=== PATIENT | female | born 1955 | race Asian ===

== ENCOUNTER 2020-07-06 17:09 | Emergency (ER) | payer OTHER ==
[2020-07-06 17:16] VITALS: BMI 30.4
[2020-07-06] MEDS ORDERED: methylPREDNISolone NA SUCC 125 MG/2 ML VIAL IVPB ONE (17:58)
[2020-07-06] MEDS ORDERED: FAMOTIDINE 20 MG TABLET PO ONE (17:58)
[2020-07-06] MEDS ORDERED: FAMOTIDINE 20 MG TABLET ONE (18:09)
[2020-07-06] MEDS ORDERED: methylPREDNISolone NA SUCC 125 MG/2 ML VIAL ONE (18:09)
[2020-07-06 19:28] LABS: BASO % 0.9 % (0-2.0); EOS % 2.8 % (0-4.5); HEMATOCRIT 40.8 % (32.4-45.2); HEMOGLOBIN 13.9 GM/dL (10.7-15.3); LYMPH % 19.9 % (8-40); MCH 30.1 pg (25.7-33.7); MEAN CELL VOLUME 88.4 fl (80-96); MEAN PLT VOLUME 10.2 fl (7.5-11.1); MONO % 6.8 % (3.8-10.2); NEUT % 69.6 % (42.8-82.8); PLATELET COUNT 254 K/MM3 (134-434); RBC 4.61 M/mm3 (3.60-5.2); RDW 13.1 % (11.6-15.6); WHITE BLOOD COUNT 13.8 K/mm3 (4.0-10.0)
[2020-07-06 19:34] LABS: INR 1.05 (0.83-1.09); PROTHROMBIN TIME (PATIENT) 12.9 SEC (9.7-13.0)
[2020-07-06 19:41] LABS: POTASSIUM 5.1 mmol/L (3.5-5.1)
[2020-07-06 19:44] LABS: ALBUMIN 4.2 g/dl (3.4-5.0); BLOOD UREA NITROGEN 13.5 mg/dL (7-18); CALCIUM 9.8 mg/dL (8.5-10.1)
[2020-07-06 19:47] LABS: CREATININE 0.8 mg/dL (0.55-1.3)
[2020-07-06 19:48] LABS: BILIRUBIN,TOTAL 0.5 mg/dL (0.2-1); TOT PROT 8.4 g/dl (6.4-8.2)
[2020-07-06 19:53] LABS: URINE APPEARANCE CLEAR; URINE BILIRUBIN NEGATIVE (NEGATIVE); URINE COLOR YELLOW; URINE GLUCOSE (UA) NEGATIVE (NEGATIVE); URINE KETONE NEGATIVE (NEGATIVE); URINE LEUK ESTERASE NEGATIVE (NEGATIVE); URINE NITRITE NEGATIVE (NEGATIVE); URINE PROTEIN NEGATIVE (NEGATIVE); URINE UROBILINOGEN 0.2 mg/dL (0.2-1.0)
[2020-07-06 23:06] VITALS: BP 136/75; PULSE 86; TEMP 98.6
== END 2020-07-06 23:09 | disposition home or self-care (01) ==
LOC: JERFT 17:09
PROC: 3E023NZ Introduction of Analgesics, Hypnotics, Sedatives into Muscle, Percutaneous Approach (ICD-10-PCS; principal; 2020-07-06)
PROC: 3E033GC Introduction of Other Therapeutic Substance into Peripheral Vein, Percutaneous Approach (ICD-10-PCS; 2020-07-06)
DX: V89.2XXA Person injured in unspecified motor-vehicle accident, traffic, initial encounter (principal)
CPT/HCPCS: 36415; 71275-TC; 73130-TC-LT-FY; 73562-TC-RT-FY; 74160-TC; 80053; 81003; 85025; 85610; 93005; 93010; 99285-25; Q9967

== ENCOUNTER 2022-04-10 04:34 | Day surgery (SDC) | payer OTHER ==
[2022-04-08 11:55] VITALS: BMI 30.8
[2022-04-10 12:17] VITALS: TEMP 97.5
[2022-04-10 13:25] VITALS: BP 100/49; PULSE 59; RESP 16
== END 2022-04-10 13:19 | disposition home or self-care (01) ==
LOC: JASU-ENDO 04:34
PROVIDERS: ATTEND Internal Medicine Gastroenterology
PROC: 0DBK8ZX Excision of Ascending Colon, Via Natural or Artificial Opening Endoscopic, Diagnostic (ICD-10-PCS; principal; 2022-04-10 11:00)
DX: Z12.11 Encounter for screening for malignant neoplasm of colon (principal); D12.2 Benign neoplasm of ascending colon; K64.8 Other hemorrhoids; K59.00 Constipation, unspecified; I10 Essential (primary) hypertension
CPT/HCPCS: 88305-TC